=== PATIENT | male | born 1980 | race Two or more races ===

== ENCOUNTER 2023-02-06 20:21 | Emergency (ER) | payer SELFPAY ==
[~2023-02-06] VITALS: Ht 182.9 cm; Wt 104.3 kg
[2023-02-06 21:10] VITALS: BP 157/93
== END 2023-02-06 23:17 | disposition left against medical advice (07) ==
LOC: ER 20:21
DX: S01.112A Laceration without foreign body of left eyelid and periocular area, initial encounter (principal); R51.9 Headache, unspecified; Z53.21 Procedure and treatment not carried out due to patient leaving prior to being seen by health care provider; X58.XXXA Exposure to other specified factors, initial encounter; Y93.89 Activity, other specified; Y92.89 Other specified places as the place of occurrence of the external cause; Y99.8 Other external cause status